=== PATIENT | male | born 1960 | race Caucasian/White ===

== ENCOUNTER 2024-08-18 09:56 | Inpatient (IN) | payer OTHER ==
[2024-08-18 10:21] VITALS: BMI 27.1
[2024-08-18] MEDS ORDERED: IBUPROFEN 400 MG TABLET (FP) PO PRN (10:41)
[2024-08-18] MEDS ORDERED: BENZONATATE 200 MG CAPSULE PO PRN (10:41)
[2024-08-18] MEDS ORDERED: NICOTINE POLACRILEX 2 MG GUM BUC PRN (10:41)
[2024-08-18] MEDS ORDERED: IBUPROFEN 600 MG TABLET (FP) PO PRN (10:41)
[2024-08-18] MEDS ORDERED: ACETAMINOPHEN 325 MG TABLET (FP) PO PRN (10:41)
[2024-08-18] MEDS ORDERED: POLYETHYLENE GLYCOL (HEALTHYLAX) 3350 17 GM PACKET PO PRN (10:41)
[2024-08-18] MEDS ORDERED: NALOXONE (NARCAN) HCL 4 MG/0.1 ML SPRAY NS PRN (10:41)
[2024-08-18] MEDS ORDERED: LOPERAMIDE HCL 2 MG CAPSULE PO PRN (10:41)
[2024-08-18] MEDS ORDERED: MAGNESIUM HYDROX 2400MG/30ML ORAL SUSPENSION 30 ML CUP PO PRN (10:41)
[2024-08-18] MEDS ORDERED: guaiFENesin 600 MG TABLET.ER (FP) PO PRN (10:41)
[2024-08-18] MEDS ORDERED: ONDANSETRON *ODT* 4 MG TABLET SL PRN (10:41)
[2024-08-18] MEDS ORDERED: BENZOCAINE/MENTHOL (CHLORASEPTIC ) LOZENGE MM PRN (10:41)
[2024-08-18] MEDS ORDERED: BISMUTH SUBSALICYLATE 262 MG/15 ML BTL PO PRN (10:41)
[2024-08-18] MEDS ORDERED: LORazepam 1 MG TABLET PO PRN (10:41)
[2024-08-18] MEDS ORDERED: DICYCLOMINE HCL 10 MG CAPSULE PO PRN (10:41)
[2024-08-18] MEDS ORDERED: amLODIPine BESYLATE 5 MG TABLET (FP) ONE (10:42)
[2024-08-18] MEDS: amLODIPine BESYLATE 5 MG TABLET (FP) PO ONE (10:46)
[2024-08-18] MEDS: LORazepam 2 MG TABLET PO SCH (11:47)
[2024-08-18] MEDS: INSULIN ASPART SLIDING SCALE (NOVOLOG) 1 VIAL SQ SCH (11:58)
[2024-08-18] MEDS: INSULIN (NOVOLOG) ASPART 100 UNITS/ML 10ML VIAL SQ SCH (14:26)
[2024-08-18] MEDS: GABAPENTIN 300 MG CAPSULE PO SCH (14:46)
[2024-08-18] MEDS: hydrOXYzine PAMOATE 25 MG CAPSULE (FP) PO PRN (16:32)
[2024-08-18] MEDS: METHOCARBAMOL 500 MG TABLET PO PRN (16:32)
[2024-08-18] MEDS: MELATONIN 5 MG TABLETS PO SCH (21:03)
[2024-08-18] MEDS: THIAMINE 100 MG TABLET PO SCH (21:03)
[2024-08-18] MEDS: QUEtiapine FUMARATE 50 MG TABLET PO SCH (21:03)
[2024-08-18] MEDS: INSULIN GLARGINE (LANTUS) 100 UNITS/ML UNITS SQ SCH (21:06)
[2024-08-19] MEDS: INSULIN GLARGINE (LANTUS) 100 UNITS/ML UNITS SQ SCH (06:05)
[2024-08-19] MEDS: INSULIN (NOVOLOG) ASPART 100 UNITS/ML 10ML VIAL SQ SCH (10:14)
[2024-08-19] MEDS: amLODIPine BESYLATE 10 MG TABLET (FP) PO SCH (10:16)
[2024-08-19] MEDS: QUEtiapine FUMARATE 50 MG TABLET PO ONE ×2 (10:18→18:00)
[2024-08-19] MEDS: NICOTINE 14 MG/24 HOURS TOPICAL PATCH TD SCH (10:18)
[2024-08-19] MEDS: PRENATAL VITAMINS W/ FOLIC ACID TABLET (FP) PO SCH (10:18)
[2024-08-20] MEDS: LORazepam 1 MG TABLET PO SCH (05:30)
[2024-08-20] MEDS: QUEtiapine FUMARATE 50 MG TABLET PO ONE (15:48)
[2024-08-21] MEDS ORDERED: LORazepam 0.5 MG TABLET PO PRN
[2024-08-21] MEDS: LORazepam 0.5 MG TABLET PO SCH (05:30)
[2024-08-21] MEDS ORDERED: INSULIN ASPART SLIDING SCALE (NOVOLOG) 1 VIAL SQ ONE (07:06)
[2024-08-21 21:39] VITALS: RESP 16; TEMP 97.7
[2024-08-22] MEDS: LORazepam 0.5 MG TABLET PO ONE (05:48)
[2024-08-22 06:34] VITALS: BP 122/82; PULSE 60
[2024-08-22] MEDS: MAG HYDROX/AL HYDROX/SIMETH 30 ML UNIT-DOSE CUP PO PRN (08:52)
== END 2024-08-22 10:36 | disposition home or self-care (01) | DRG 897 ==
LOC: YASAS 09:56 → Y3N 11:04
PROVIDERS: ADMIT Allergy & Immunology; ATTEND Allergy & Immunology
PROC: HZ2ZZZZ Detoxification Services for Substance Abuse Treatment (ICD-10-PCS; principal; 2024-08-18)
DX: F10.230 Alcohol dependence with withdrawal, uncomplicated (principal); F17.210 Nicotine dependence, cigarettes, uncomplicated; F10.24 Alcohol dependence with alcohol-induced mood disorder; F43.21 Adjustment disorder with depressed mood; F41.9 Anxiety disorder, unspecified; G47.00 Insomnia, unspecified; K21.9 Gastro-esophageal reflux disease without esophagitis; E11.59 Type 2 diabetes mellitus with other circulatory complications; Z79.4 Long term (current) use of insulin
CPT/HCPCS: 80305; 80307; 82962; 93005; 93010